=== PATIENT | male | born 2000 | race Caucasian/White ===

== ENCOUNTER 2024-12-28 09:51 | Emergency (ER) | payer OTHER, BC, SELFPAY ==
[2024-12-28 09:53] VITALS: BP 135/84; PULSE 86; RESP 16; TEMP 35.9; O2SAT 98; BMI 22.5
--- NOTE | 2024-12-28 10:12 | EX.ED.GENINJ ---
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 He presents from work. He has a work-related injury. He states he went to stand up and hit electrical box. He sustained a 4.5 cm laceration scalp. He denies loss of conscious. He was not dazed. He denies photophobia or sonophobia. He does endorse nausea. He denies neck pain. He denies feeling dazed. He denies paresthesia, anesthesia or motor weakness. Tetanus 1 year ago Tetanus Immunization: <5 years Prior similar symptoms: No Recent Illness/Hospitalization: No PFSH PFSH Medical History no medical history no medical history Home Medications ?Medication ?Instructions ?Recorded ?Last Taken ?Type No Known/Unobtainable [No Known 09/26/15 Unknown History Home Medications] Allergy/AdvReac Type Severity Reaction Status Date / Time No Known Allergies Allergy Verified 12/28/24 09:51 Surgical History no surgical history Social History Smoking Status: Never smoker ROS ROS ED Eyes Eyes: Denies blurry vision or change in vision ENT ENT ED: Reports other Details: Negative epistaxis. Gastrointestinal Gastrointestinal: Reports nausea; Denies vomiting Musculoskeletal Musculoskeletal: Denies back pain or neck pain Integumentary Reports other Details: Scalp laceration Neurologic Neurologic: Denies headache(s) or paresthesias Hematologic/Lymphatic Hematologic/Lymphatic: Denies easy bleeding or easy bruising EXAM Physical Exam Const Vital Signs: 12/28/24 09:53 Temperature 96.7 F L Temperature Source Temporal Pulse Rate 86 Respiratory Rate 16 Blood Pressure 135/84 H Blood Pressure Mean 101 Pulse Ox 98 Oxygen Delivery Method Room Air Positive well nourished and well developed General Appearance ED: well developed and NAD HEENT HEENT Narrative: Ears normal. There is no palp depression. There is no clinical signs of basilar skull fracture. trauma and tenderness Nose: Negative for septum abnormal Eyes PERRL and EOMs intact bilaterally Neck full ROM Chest Wall inspection of chest normal and palpation of chest normal Resp normal respiratory effort Cardio regular rhythm Rate: regular rate Extremity normal to inspection Neuro oriented x3, CN's II-XII intact bilaterally and gait normal [place] Coma Scale: document GCS findings Spontaneous Obeys Commands Oriented 15 Sensorium / Orientation: alert Psych mental status grossly normal and thought process normal Skin no rashes or lesions noted, No no wounds, skin turgor normal and no jaundice Skin Narrative: 4.5 cm linear scalp laceration PROC Procedures Lacerations Patient has a 4.5 cm scalp laceration. Wound was anesthetized by local infiltration using 1% lidocaine without epinephrine. Wound was cleansed. Sta: Depth: Sub Q Shape: Linear Prep: Sterile Conditions and Chlorhexadine Number of Sutures/Lisa: 6 MDM MDM MDM Narrative Medical decision making narrative: With patient complaining of nausea he probably has a mild concussion. Based on the [place] CT head rule and [place] rule imaging is not indicated. Since patient has no posterior midline neck pain per Nexus criteria he does not need imaging. Will anesthetize wound and staple. Discharge Plan Triage Chief Complaint: Laceration ED Provider: Carson Valdivia Dx/Rx/DC Orders Clinical Impression: Concussion without loss of consciousness, Laceration of scalp Instructions: ED Concussion, ED Laceration Scalp Stitches or [place] Prescriptions: No Action No Known Home Medications Primary Care Provider: Heriberto Montemayor Referrals: [facility] [Group of Physicians] - 10 Day for suture removal Heriberto Montemyaor MD [Primary Care Provider] - Print Language: Urdu Disposition Disposition: Home, Self Care
[2024-12-28] MEDS: Lidocaine 1% (20 ml mdv) 20 ML Vial INFILT (10:24)
[2024-12-28 11:16] VITALS: BP 129/71; PULSE 77; RESP 14; TEMP 35.9; O2SAT 98
--- OUTSIDE RECORDS SUMMARY | 2024-12-28 12:30 | XMS RPT_ITS | CCD ---
Author Organization [facility] Inform ion Partnership [facility] Care Team Providers Care Packer Name Role Phone Gogo Jack Unavailable Shaun Lieberman Unavailable Unavailable Gogo Jack MD Primary Care Provider Juliane Rashid MD Primary Care Provider GOGO JACK Primary Care Unavailable JULIANE RASHID Attending Unavailable Medications Current Medications Medication Drug Class(es) Dates Sig (Normalized) Sig (Original) triamcinolone acetonide 0.005 mg/mg topical ointment (1 source) Corticosteroid Start: 03-08-2024 End: 03-22-2024 triamcinolone acetonide topical 0.5 % ointment Indications: Contact dermatitis, unspecified contact dermatitis type, unspecified trigger Apply to affected area two times a day for 14 days. 60 g 0 03/08/2024 03/22/2024 Active Problems Active Problems Problem Classification Problem Date Documented Da te Episodic/Chronic Allergic reactions (3 sources) Contact dermatitis; Translations: [Unspecified contact dermatitis, unspecified cause] Episodic External Injury - Struck by; against (1 source) Striking against or struck by other objects, initial encounter; Translations: [STRIKING AGAINST OR STRUCK BY OTHER OBJECTS, INIT ENCNTR] Onset: 01-11-2017 External Injury - Unspecified (1 source) Activity, baseball; Translations: [ACTIVITY, BASEBALL] Onset: 01-11-2017 Immunizations and screening for infectious disease (4 sources) Patient encounter status; Translations: [Encounter for immunization] 03-08-2024 Episodic Past or Other Problems Problem Classification Problem Date Documented Da te Episodic/Chronic Other inflammatory condition of skin (2 sources) Seborrheic dermatitis of scalp; Translations: [Seborrheic dermatitis, unspecified] Onset: 02-18-2013 02-18-2013 Episodic Superficial injury; contusion (1 source) Contusion of unspecified part of head, initial encounter; Translations: [CONTUSION OF UNSPECIFIED PART OF HEAD, INITIAL ENCOUNTER] Onset: 01-11-2017 Episodic Results Test Name Value Interpretation Reference Range Facil ity C. trachomatis+N. gonorrhoea e DNA PAULO+probe Ql (Unsp spec)on 03-08-2024 C. trachomatis rRNA PAULO+probe Ql (Unsp spec) Negative Normal Negative for Chlamydia trachomatis by amplificaton [facility] Comment on above: Order Comment: Speci men Type: URINE SPECIMEN Ordering Facility: [facility] Address: [address] [place] [address] Performed By: #### [id number] #### [facility] CLIA [id number] [address] [place] [address] [place] N. gonorrhoeae rRNA PAULO+probe Ql (Unsp spec) Negative Normal Negative for Neisseria gonorrhoeae by amplification [facility] Comment on above: Order Comment: Speci men Type: URINE SPECIMEN Ordering Facility: [facility] Address: [address] [place] [address] Performed By: #### 3 [id number] #### [facility] CLIA [id number] [address] [place] [address] [place] CNOVon 03-08-2024 CNOV Office Visit (FPWADS) ---- MATT RDZ ([id number]) 1 M Date Time Provider Department 03/08/24 8:00 AM JULIANE RASHID FPLEAH During your visit today, we recorded the following information about you: Pulse Blood pressure Weight Height 59/minute 105/62 68 kg 1.778 m Juliane Rashid MD 03/08/2024 1:07 PM Signed CHIEF COMPLAINT Patient presents with: Establish Care HISTORY OF PRESENT ILLNESS Matt Rdz is a 23 year old male who presents here today to establish care. Previously followed by Gogo Jack MD of pediatrics in [place]. - Reports feeling well - No specific concerns at this time Contact Dermatitis - Has intermittent rashes involving the axilla areas - Worse in hot weather - Previously treated with cortisone cream, which was beneficial - Has switched antiperspirant, now uses [employer] which is more natural with less chemicals Medical History - Mild concussion- sports injury 2016 Health Maintenance: Due for Hep C Screening Due for HIV Screening Due for DTaP, Tdap, Td Vaccine (7- Td or Tdap) Due for Covid-19 Vaccine ( season) Past, family and social history reviewed. PAST MEDICAL HISTORY PAST MEDICAL HISTORY 11/26/05: PMH - PAST MEDICAL HISTORY OF Comment: normal color vision No date: Psoriasis of scalp Comment: Dermatology Dr. Pulido PAST SURGICAL HISTORY No date: NONE ALLERGIES Patient has no known allergies. FAMILY HISTORY Problem Relation Age of Onset Colon Cancer Paternal Grandfather Fatal other (rheumatoid arthritis) Paternal Grandmother Fatal other (arrhythmia) Maternal Grandfather 30 other (MVP) Mother Social History Tobacco Use Smoking status: Never Smokeless tobacco: Never Substance Use Topics Alcohol use: No Drug use: No Requests STI testing. REVIEW OF SYSTEMS General: Feels well, no weight changes, fevers or chills. HEENT: No sinus congestion, earache, sore throat. Cardiac: No chest pain, palpitations Resp: No cough, wheeze, shortness of breath GI: No reflux symptoms, food intolerance, bowel changes. : No urinary frequency, dysuria. MS: No pain or joint complaints. Skin: +rash involving the axilla, bilaterally PHYSICAL EXAMINATION Ht 177.8 cm (5' 10) Wt 68 kg (149 lb 14.6 oz) BMI 21.51 kg/m? General: Alert, well developed, well nourished, no distress, pleasant and cooperative. HEENT: No adenopathy or thyromegaly Heart: Regular rate and rhythm. Normal S1 and S2. No murmurs, rubs, or gallops. Lungs: Clear to auscultation bilaterally. No respiratory distress. No wheezes, rales, or rhonchi. Abdomen: Soft, non-tender, no distention Extremities: Feet/ankles without edema, posterior tibial pulses full and symmetrical Skin: No rashes or suspicious skin lesions noted. 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 (Z13.31) Screening for depression (Z13.39) Encounter for screening examination for other mental health and behavioral disorders Comment: Per health maintenance Plan: ANXIETY SCREENING DEPRESSION SCREENING (L25.9) Contact dermatitis, unspecified contact dermatitis type, unspecified trigger Comment: Recurring , Axilla areas. Previously used triamcinolone ointment with benefit Plan: Start triamcinolone acetonide topical 0.5 % ointment (Z23) Encounter for immunization Comment: Per health maintenance, pt agreeable Plan: TDAP VACCINE, AGE 7+ YR (ADACEL, BOOSTRIX) (Z11.3) Routine screening for STI (sexually transmitted infection) Comment: no symptoms. Just request testing Plan: GONORRHEA/CHLAMYDIA NAAT Requested Prescriptions Signed Prescriptions Disp Refills triamcinolone acetonide topical 0.5 % ointment 60 g 0 Sig: Apply to affected area two times a day for 14 days. RTO: 2 years or sooner as needed Scribe Attestation: By signing my name below, Ami Nash, attest that this documentation has been prepared under the direction and in the presence of Heriberto Rashid M.D. Electronically Signed: Jesica Nova. March 08, 2024 8:11 AM Provider Attestation: Juliane Nash MD, personally performed the services described in this documentation. All medical record entries made by the scribe were at my direction and in my telephonic presence. I have reviewed the chart and discharge instructions (if applicable), and agree that the record reflects my person (more content not included)... Normal [facility] Vital Signs Date Time Vital Sign Value Performing Clinician Perfecto garner 03-08-2024 08:10-0400 Body height 177.8 cm Juliane Rashid MD Work Phone: [facility] 03-08-2024 08:10-0400 Body mass index (BMI) [Ratio] 21.51 kg/m2 Juliane Rashid MD Work Phone: [facility] 03-08-2024 08:10-0400 Body weight 68 kg Juliane Rashid MD Work Phone: [facility] 03-08-2024 08:10-0400 Diastolic blood pressure 62 mm[Hg] Juliane Rashid MD Work Phone: [facility] 03-08-2024 08:10-0400 Heart rate 59 /min Juliane Rashid MD Work Phone: [facility] 03-08-2024 08:10-0400 SaO2% (BldA) [Mass fraction] 100 % Juliane Rashid MD Work Phone: [facility] 03-08-2024 08:10-0400 Systolic blood pressure 105 mm[Hg] Juliane Rashid MD Work Phone: [facility] Encounters Encounter Date Encounter Type Care Provider Facility Start: 03-08-2024 End: 03-08-2024 ambulatory [facility] Facility:[facility] Start: 03-08-2024 End: 03-08-2024 Patient encounter procedure Juliane Rashid MD Work Phone: [facility] Comment on above: Encounter for medica l examination to establish care (Primary Dx); Screening for depression; Encounter for screening examination for other mental health and behavioral disorders; Dermatitis due to plants, including poison cyndi, sumac, and oak; Contact dermatitis, unspecified contact dermatitis type, unspecified trigger; Encounter for immunization; Routine screening for STI (sexually transmitted infection) Start: 03-08-2024 End: 03-08-2024 Patient encounter status Juliane Rashid MD Work Phone: [facility] Work Phone: Start: 12-23-2022 Refill Gogo Jack MD Work Phone: [facility] [place] Comment on above: Refill Request Start: 09-26-2015 End: 09-27-2015 Emergency department patient visit Gogo Jack Facility:[facility] Procedures Date Procedure Procedure Detail Performing Clinician Start: 03-08-2024 Adult depression screening assessment Juliane Rashid MD Work Phone: Plan of Treatment Date Care Activity Detail Author Start: 03-08-2034 Urine microalbumin profile DTaP,Tdap,Td Vaccine (8 - Td or Tdap) [facility] Start: 03-08-2025 Anxiety Screening Anxiety Screening [facility] Start: 03-08-2025 Depression Screening Depression Screening [facility] Start: 03-27-2024 Influenza vaccination Influenza Vaccine (#1) [facility] Start: 03-27-2023 Covid-19 Vaccine ( season) Covid-19 Vaccine ( season) [facility] Start: 03-27-2023 Influenza vaccination INFLUENZA (Season Ended) [facility] Start: 02-18-2023 Urine microalbumin profile DTAP,TDAP,TD (7 - Td or Tdap) [facility] Start: 07-27-2022 DEPRESSION ASSESSMENT DEPRESSION ASSESSMENT [facility] Start: 2018 HEPATITIS C SCREENING HEPATITIS C SCREENING [facility] Start: 2018 Hepatitis C screening Hepatitis C Screening [facility] Start: 2018 HIV SCREENING HIV SCREENING [facility] Start: 2018 HIV screening HIV Screening [facility] Start: 2016 Meningococcal B Vaccine: Consider Based On Risk (1 of 2 - Patient Seeks Protection) Meningococcal B Vaccine: Consider Based On Risk (1 of 2 - Patient Seeks Protection) [facility] Start: 2014 PEDS TO ADULT TRANSITION ANNUAL ASSESSMENT PEDS TO ADULT TRANSITION ANNUAL ASSESSMENT [facility] Start: 2012 PEDS TO ADULT TRANSITION INITIAL DISCUSSION PEDS TO ADULT TRANSITION INITIAL DISCUSSION [facility] Start: 2010 MENINGOCOCCAL B: Consider based on risk (1 of 2 - Risk Bexsero 2-dose series) MENINGOCOCCAL B: Consider based on risk (1 of 2 - Risk Bexsero 2-dose series) [facility] Start: 05-24-2001 COVID-19 VACCINE (#1) COVID-19 VACCINE (#1) [facility] Chlamydia trachomatis+Neisseria gonorrhoeae DNA [Presence] in Unspecified specimen by PAULO with probe detection GONORRHEA/CHLAMYDIA NAAT Lab Routine Routine screening for STI (sexually transmitted infection) 03/08/2024 8:58 AM EDT [facility] Work Phone: Immunizations Immunization Date Immunization Notes Care Provider Fa cility 03-08-2024 tetanus toxoid, redu hortensia diphtheria toxoid, and acellular pertussis vaccine, adsorbed Juliane Rashid MD Work Phone: [facility] 06-19-2020 influenza, injectabl e, quadrivalent, contains preservative Gogo Jack MD Work Phone: [facility] 06-19-2020 influenza virus vacc ine, unspecified formulation Juliane Rashid MD Work Phone: [facility] 06-24-2019 influenza, injectabl e, quadrivalent, contains preservative Gogo Jack MD Work Phone: [facility] Work Phone: 07-21-2018 Human Papillomavirus 9-valent vaccine Gogo Jack MD Work Phone: [facility] Work Phone: 05-29-2018 influenza, injectabl e, quadrivalent, contains preservative Gogo Jack MD Work Phone: [facility] Work Phone: 03-05-2018 Human Papillomavirus 9-valent vaccine Gogo Jack MD Work Phone: [facility] 12-03-2017 Human Papillomavirus 9-valent vaccine Gogo Jack MD Work Phone: [facility] 02-25-2017 meningococcal polysaccharide (groups A, C, Y and W-135) diphtheria toxoid conjugate vaccine (MCV4P) Gogo Jack MD Work Phone: [facility] 05-25-2014 influenza, live, intranasal, quadrivalent Gogo Jack MD Work Phone: [facility] 06-04-2013 influenza virus vacc ine, live, attenuated, for intranasal use Gogo Jack MD Work Phone: [facility] 02-18-2013 Meningococcal, MCV4, unspecified conjugate formulation(groups A, C, Y and W-135) Gogo Jack MD Work Phone: [facility] 02-18-2013 tetanus toxoid, redu hortensia diphtheria toxoid, and acellular pertussis vaccine, adsorbed Gogo Jack MD Work Phone: [facility] 02-18-2013 varicella virus vaccine Gogo Jack MD Work Phone: [facility] 04-23-2012 influenza virus vacc ine, live, attenuated, for intranasal use Gogo Jack MD Work Phone: [facility] Work Phone: 06-07-2011 influenza virus vacc ine, live, attenuated, for intranasal use Gogo Jack MD Work Phone: [facility] 05-11-2010 influenza virus vacc ine, live, attenuated, for intranasal use Gogo Jack MD Work Phone: [facility] Work Phone: 06-28-2009 novel Influenza-H1N1 -09, live virus for nasal administration Juliane Rashid MD Work Phone: [facility] 05-30-2009 novel influenza-H1N1 -09, preservative-free, injectable Juliane Rashid MD Work Phone: [facility] 05-09-2009 influenza virus vacc ine, live, attenuated, for intranasal use Gogo Jack MD Work Phone: [facility] Work Phone: 05-17-2008 influenza virus vacc ine, live, attenuated, for intranasal use Gogo Jack MD Work Phone: [facility] Work Phone: 06-07-2007 influenza virus vacc ine, live, attenuated, for intranasal use Gogo Jack MD Work Phone: [facility] Work Phone: 06-04-2006 influenza virus vacc ine, live, attenuated, for intranasal use Gogo Jack MD Work Phone: [facility] 11-26-2005 diphtheria, tetanus toxoids and acellular pertussis vaccine Gogo Jack MD Work Phone: [facility] 11-26-2005 measles, mumps and rubella virus vaccine Gogo Jack MD Work Phone: [facility] 11-26-2005 poliovirus vaccine, inactivated Gogo Jack MD Work Phone: [facility] 05-21-2005 influenza virus vacc ine, unspecified formulation Gogo Jack MD Work Phone: [facility] 06-28-2003 influenza virus vacc ine, unspecified formulation Gogo Jack MD Work Phone: [facility] 11-24-2002 pneumococcal conjuga te vaccine, 7 valent Gogo Jack MD Work Phone: [facility] 05-24-2002 influenza virus vacc ine, unspecified formulation Gogo Jack MD Work Phone: [facility] 02-21-2002 diphtheria, tetanus toxoids and acellular pertussis vaccine Gogo Jack MD Work Phone: [facility] 02-21-2002 haemophilus influenz ae type b vaccine, HbOC conjugate Gogo Jack MD Work Phone: [facility] 11-23-2001 measles, mumps and rubella virus vaccine Gogo Jack MD Work Phone: [facility] 11-23-2001 varicella virus vaccine Gogo Jack MD Work Phone: [facility] 08-25-2001 hepatitis B vaccine, pediatric or pediatric/adolescent dosage Gogo Jack MD Work Phone: [facility] 08-25-2001 pneumococcal conjuga te vaccine, 7 valent Gogo Jack MD Work Phone: [facility] 05-26-2001 diphtheria, tetanus toxoids and acellular pertussis vaccine Gogo Jack MD Work Phone: [facility] 05-26-2001 haemophilus influenz ae type b vaccine, HbOC conjugate Gogo Jack MD Work Phone: [facility] 05-26-2001 poliovirus vaccine, inactivated Gogo Jack MD Work Phone: [facility] 04-22-2001 pneumococcal conjuga te vaccine, 7 valent Gogo Jack MD Work Phone: [facility] 03-24-2001 diphtheria, tetanus toxoids and acellular pertussis vaccine Gogo Jack MD Work Phone: [facility] 03-24-2001 haemophilus influenz ae type b vaccine, HbOC conjugate Gogo Jack MD Work Phone: [facility] 03-24-2001 poliovirus vaccine, inactivated Gogo Jack MD Work Phone: [facility] 01-26-2001 diphtheria, tetanus toxoids and acellular pertussis vaccine Gogo Jack MD Work Phone: [facility] 01-26-2001 haemophilus influenz ae type b vaccine, HbOC conjugate Gogo Jack MD Work Phone: [facility] 01-26-2001 pneumococcal conjuga te vaccine, 7 valent Gogo Jack MD Work Phone: [facility] 01-26-2001 poliovirus vaccine, inactivated Gogo Jack MD Work Phone: [facility] 2000 hepatitis B vaccine, pediatric or pediatric/adolescent dosage Gogo Jack MD Work Phone: [facility] 2000 hepatitis B vaccine, pediatric or pediatric/adolescent dosage Gogo Jack MD Work Phone: [facility] Payers Date Payer Category Payer Unknown [id number] 2019 Unknown [id number] 2019 Unknown [id number] 2005 Unknown [id number] Social History Date Type Detail Facility Start: 12-03-2017 End: 03-08-2024 Tobacco smoking status NHIS Never smoked tobacco [facility] Start: 12-03-2017 End: 03-08-2024 Tobacco use and exposure Smokeless tobacco non-user [facility] Start: 08-02-2020 End: 03-08-2024 Alcohol intake Current non-drinker of alcohol (finding) [facility] Start: 2000 Sex Assigned At Not on file [facility] Start: 07-04-2020 End: 03-08-2024 History of Social function [facility] Start: 07-04-2020 End: 03-08-2024 Tobacco use panel [facility] Adult Depression Scr eening Assessment 0 [facility] Progress note 03-08-2024 Note Date & Type Note Facility 03-08-2024 Note HNO ID: [id number] Author: JULIANE RASHID MD Service: ? Author Type: Physician Type: Progress Notes Filed: 03/08/2024 13:07 Note Text: CHIEF COMPLAINT Patient presents with: Establish Care HISTORY OF PRESENT ILLNESS Matt Rdz is a 23 year old male who presents here today to establish care. Previously followed by Gogo Jack MD of pediatrics in [place]. - Reports feeling well - No specific concerns at this time Contact Dermatitis - Has intermittent rashes involving the axilla areas - Worse in hot weather - Previously treated with cortisone cream, which was beneficial - Has switched antiperspirant, now uses [employer] which is more natural with less chemicals Medical History - Mild concussion- sports injury 2016 Health Maintenance: Due for Hep C Screening Due for HIV Screening Due for DTaP, Tdap, Td Vaccine (7- Td or Tdap) Due for Covid-19 Vaccine ( season) Past, family and social history reviewed. PAST MEDICAL HISTORY PAST MEDICAL HISTORY 11/26/05: PMH - PAST MEDICAL HISTORY OF Comment: normal color vision No date: Psoriasis of scalp Comment: Dermatology Dr. Pulido PAST SURGICAL HISTORY No date: NONE ALLERGIES Patient has no known allergies. FAMILY HISTORY Problem Relation Age of Onset Colon Cancer Paternal Grandfather Fatal other (rheumatoid arthritis) Paternal Grandmother Fatal other (arrhythmia) Maternal Grandfather 30 other (MVP) Mother Social History Tobacco Use Smoking status: Never Smokeless tobacco: Never Substance Use Topics Alcohol use: No Drug use: No Requests STI testing. REVIEW OF SYSTEMS General: Feels well, no weight changes, fevers or chills. HEENT: No sinus congestion, earache, sore throat. Cardiac: No chest pain, palpitations Resp: No cough, wheeze, shortness of breath GI: No reflux symptoms, food intolerance, bowel changes. : No urinary frequency, dysuria. MS: No pain or joint complaints. Skin: +rash involving the axilla, bilaterally PHYSICAL EXAMINATION Ht 177.8 cm (5' 10) Wt 68 kg (149 lb 14.6 oz) BMI 21.51 kg/m? General: Alert, well developed, well nourished, no distress, pleasant and cooperative. HEENT: No adenopathy or thyromegaly Heart: Regular rate and rhythm. Normal S1 and S2. No murmurs, rubs, or gallops. Lungs: Clear to auscultation bilaterally. No respiratory distress. No wheezes, rales, or rhonchi. Abdomen: Soft, non-tender, no distention Extremities: Feet/ankles without edema, posterior tibial pulses full and symmetrical Skin: No rashes or suspicious skin lesions noted. 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 (Z13.31) Screening for depression (Z13.39) Encounter for screening examination for other mental health and behavioral disorders Comment: Per health maintenance Plan: ANXIETY SCREENING DEPRESSION SCREENING (L25.9) Contact dermatitis, unspecified contact dermatitis type, unspecified trigger Comment: Recurring , Axilla areas. Previously used triamcinolone ointment with benefit Plan: Start triamcinolone acetonide topical 0.5 % ointment (Z23) Encounter for immunization Comment: Per health maintenance, pt agreeable Plan: TDAP VACCINE, AGE 7+ YR (ADACEL, BOOSTRIX) (Z11.3) Routine screening for STI (sexually transmitted infection) Comment: no symptoms. Just request testing Plan: GONORRHEA/CHLAMYDIA NAAT Requested Prescriptions Signed Prescriptions Disp Refills triamcinolone acetonide topical 0.5 % ointment 60 g 0 Sig: Apply to affected area two times a day for 14 days. RTO: 2 years or sooner as needed Scribe Attestation: By signing my name below, IAmi, attest that this documentation has been prepared under the direction and in the presence of Heriberto Rashid M.D. Electronically Signed: Jesica Nova. March 08, 2024 8:11 AM Provider Attestation: Juliane Nash MD, personally performed the services described in this documentation. All medical record entries made by the scribe were at my direction and in my telephonic presence. I have reviewed the chart and discharge instructions (if applicable), and agree that the record reflects my personal performance and is accurate and complete. Electronically Signed: Juliane Rashid MD March 08, 2024 1:02 PM [facility] History of Present illness Narrative 03-08-2024 Juliane Rashid MD - 03/08/2024 8:11 AM EDT Note Date & Type Note Facility 03-08-2024 History of Presen t illness Narrative CHIEF COMPLAINT Patient presents with: Establish Care HISTORY OF PRESENT ILLNESS Matt Rdz is a 23 year old male who presents here today to establish care. Previously followed by Gogo Jack MD of pediatrics in [place]. - Reports feeling well - No specific concerns at this time Contact Dermatitis - Has intermittent rashes involving the axilla areas - Worse in hot weather - Previously treated with cortisone cream, which was beneficial - Has switched antiperspirant, now uses [employer] which is more natural with less chemicals Medical History - Mild concussion- sports injury 2017 Health Maintenance: Due for Hep C Screening Due for HIV Screening Due for DTaP, Tdap, Td Vaccine (7- Td or Tdap) Due for Covid-19 Vaccine (2022- season) Past, family and social history reviewed. PAST MEDICAL HISTORY PAST MEDICAL HISTORY 11/26/05: PMH - PAST MEDICAL HISTORY OF Comment: normal color vision No date: Psoriasis of scalp Comment: Dermatology Dr. Pulido PAST SURGICAL HISTORY No date: NONE ALLERGIES Patient has no known allergies. FAMILY HISTORY Problem Relation Age of Onset Colon Cancer Paternal Grandfather Fatal other (rheumatoid arthritis) Paternal Grandmother Fatal other (arrhythmia) Maternal Grandfather 30 other (MVP) Mother Social History Tobacco Use Smoking status: Never Smokeless tobacco: Never Substance Use Topics Alcohol use: No Drug use: No Requests STI testing. REVIEW OF SYSTEMS General: Feels well, no weight changes, fevers or chills. HEENT: No sinus congestion, earache, sore throat. Cardiac: No chest pain, palpitations Resp: No cough, wheeze, shortness of breath GI: No reflux symptoms, food intolerance, bowel changes. : No urinary frequency, dysuria. MS: No pain or joint complaints. Skin: +rash involving the axilla, bilaterally PHYSICAL EXAMINATION Ht 177.8 cm (5' 10) Wt 68 kg (149 lb 14.6 oz) BMI 21.51 kg/m General: Alert, well developed, well nourished, no distress, pleasant and cooperative. HEENT: No adenopathy or thyromegaly Heart: Regular rate and rhythm. Normal S1 and S2. No murmurs, rubs, or gallops. Lungs: Clear to auscultation bilaterally. No respiratory distress. No wheezes, rales, or rhonchi. Abdomen: Soft, non-tender, no distention Extremities: Feet/ankles without edema, posterior tibial pulses full and symmetrical Skin: No rashes or suspicious skin lesions noted. 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 (Z13.31) Screening for depression (Z13.39) Encounter for screening examination for other mental health and behavioral disorders Comment: Per health maintenance Plan: ANXIETY SCREENING DEPRESSION SCREENING (L25.9) Contact dermatitis, unspecified contact dermatitis type, unspecified trigger Comment: Recurring , Axilla areas. Previously used triamcinolone ointment with benefit Plan: Start triamcinolone acetonide topical 0.5 % ointment (Z23) Encounter for immunization Comment: Per health maintenance, pt agreeable Plan: TDAP VACCINE, AGE 7+ YR (ADE BOOSTRIX) (Z11.3) Routine screening for STI (sexually transmitted infection) Comment: no symptoms. Just request testing Plan: GONORRHEA/CHLAMYDIA NAAT Requested Prescriptions Signed Prescriptions Disp Refills triamcinolone acetonide topical 0.5 % ointment 60 g 0 Sig: Apply to affected area two times a day for 14 days. RTO: 2 years or sooner as needed Scribe Attestation: By signing my name below, IAmi, attest that this documentation has been prepared under the direction and in the presence of Heriberto Rashid M.D. Electronically Signed: Jesica Nova. March 08, 2024 8:11 AM Provider Attestation: Juliane Nash MD, personally performed the services described in this documentation. All medical record entries made by the scribe were at my direction and in my telephonic presence. I have reviewed the chart and discharge instructions (if applicable), and agree that the record reflects my personal performance and is accurate and complete. Electronically Signed: Juliane Rashid MD March 08, 2024 1:02 PM documented in this encounter [facility] Evaluation note Note Date & Type Note Facility Evaluation note Diagnosis Contact dermatitis, unspecified contact dermatitis type, unspecified trigger documented in this encounter [facility] Evaluation note Note Date & Type Note Facility Evaluation note Diagnosis Encounter for medical examination to establish care- Primary Screening for depression Encounter for screening examination for other mental health and behavioral disorders Dermatitis due to plants, including poison cyndi, sumac, and oak Contact dermatitis and other eczema due to plants (except food) Contact dermatitis, unspecified contact dermatitis type, unspecified trigger Encounter for immunization Need for other specified prophylactic vaccination against single bacterial disease Routine screening for STI (sexually transmitted infection) Screening examination for venereal disease documented in this encounter [facility] Summary Purpose Family History No Family History Records FoundNo Family History Records Found Advance Directives No Advanced Directives Records FoundNo Advanced Directives Records Found Additional Source Comments (unrecognized sect ion and content) No Status Records FoundNo Status Records Found INFORMATION SOURCE (unrecogn ized section and content) DATE CREATED AUTHOR 01/20/2018 [facility] DATE CREATED AUTHOR AUTHOR'S ORGANIZ ATION 03/09/2024 [facility] Source Comments (unrecognize d section and content) In the event this informatio n is protected by the Federal Confidentiality of Alcohol and Drug Abuse Patient Records regulations: The Federal rules restrict any use of the information to criminally investigate or prosecute any alcohol or drug abuse patient[facility] event this information is protected by the Federal Confidentiality of Alcohol and Drug Abuse Patient Records regulations: The Federal rules restrict any use of the information to criminally investigate or prosecute any alcohol or drug abuse patient.[facility] Reason for Visit (unrecogniz ed section and content) Reason Comments Refill Request Reason Comments Establish Care Care Teams (unrecognized sec tion and content) Packer Relationship Specialty Start Date End Date Gogo Jack MD [address] [place], [place] [id number] PCP - General 05/23/02 Packer Relationship Specialty Start Date End Date Juliane Rashid MD [address] [place] [address] [address] [place] [place] [id number] PCP - General Family Medicine 03/08/24 FOR RECORDS PERTAINING TO PATIENTS WHO ARE OR HAVE BEEN ENROLLED IN A CHEMICAL DEPENDENCY/SUBSTANCEABUSE PROGRAM, SOME INFORMATION MAY BE OMITTED. This clinical summary was aggregated from multiple sources. Caution should be exercised in using it in the provision of clinical care. This summary normalizes information from multiple sources, and as a consequence, information in this document may materially change the coding, format and clinical context of patient data. In addition, data may be omitted in some cases. CLINICAL DECISIONS SHOULD BE BASED ON THE PRIMARY CLINICAL RECORDS. [facility]. provides no warranty or guarantee of the accuracy or completeness of information in this document.
== END 2024-12-28 11:17 | disposition home or self-care (01) ==
PROVIDERS: Emergency Provider Emergency Medicine; PCP Family Medicine; Visit Provider Emergency Medicine
DX: S06.0X0A Concussion without loss of consciousness, initial encounter (principal); S01.01XA Laceration without foreign body of scalp, initial encounter; W22.09XA Striking against other stationary object, initial encounter; Y93.89 Activity, other specified; Y99.0 Civilian activity done for income or pay
CPT/HCPCS: 12002; 99283